=== PATIENT | female | born 1985 | race Caucasian/White ===

== ENCOUNTER 2016-09-19 12:12 | Emergency (ER) | payer MEDICAID ==
[~2016-09-19] VITALS: Ht 165.1 cm; Wt 83.0 kg
[~2016-09-19 12:12] MED LIST: ALBU8.5H5 HOMEINH; ASPI-621 PO; ATOR20TA PO; BENZTROPINE; CLON-364 PO; CLON2TAB2 PO; ESTR1TAB15 PO; GEMF600T PO; INDO75CA3 PO; LEVO175T2 PO; LEVO200T PO; LUTE20TA PO; MAGN100T6 PO; MAGNESIUM PO; MULT-204 PO; MYCO500T PO; MYCO500V PO; OMEG-14 PO; OMEP-110 PO; ONDA8TAB9 PO; OXCA300T3 PO; OXCA600T3 PO; OXYC-302 PO; PANT20TA2 PO; PRED5TAB; PROP60TA PO; QUET300T PO; RISP2TAB35 PO; SERT50TA PO; SUCR1TAB26; TOPI200T25 PO; ZIPR80CA2 PO; [UNRECOGNIZED DRUG - OTHER] PO; cogentin PO; estrogen patch SQ; omeprazole PO; seroquel PO
[2016-09-19] MEDS ORDERED: DIAZEPAM 5 MG TABLET PO ONE (13:30)
[2016-09-19] MEDS ORDERED: KETOROLAC 30 MG/1 ML IM ONE (13:30)
[2016-09-19] MEDS ORDERED: KETOROLAC 30 MG/1 ML ONE (13:39)
[2016-09-19] MEDS ORDERED: DIAZEPAM 5 MG TABLET ONE (13:39)
[2016-09-19 14:29] VITALS: BP_DIAS 71
[2016-09-19 15:06] VITALS: BP_SYST 129
== END 2016-09-19 15:08 | disposition home or self-care (01) ==
LOC: ED 12:42
DX: S39.012A Strain of muscle, fascia and tendon of lower back, initial encounter (principal); R07.89 Other chest pain; I10 Essential (primary) hypertension; K21.9 Gastro-esophageal reflux disease without esophagitis; E07.9 Disorder of thyroid, unspecified; Z90.49 Acquired absence of other specified parts of digestive tract; X50.0XXA Overexertion from strenuous movement or load, initial encounter; X50.9XXA Other and unspecified overexertion or strenuous movements or postures, initial encounter; Y93.89 Activity, other specified; Y92.69 Other specified industrial and construction area as the place of occurrence of the external cause; Y99.8 Other external cause status
CPT/HCPCS: 81003; 93005; 96372; 99285; J1885

== ENCOUNTER 2016-10-04 16:05 | Emergency (ER) | payer MEDICAID ==
[~2016-10-04] VITALS: Ht 165.1 cm; Wt 82.1 kg
[2016-10-04] MEDS ORDERED: KETOROLAC 30 MG/1 ML IVPush ONE (17:00)
[2016-10-04] MEDS ORDERED: SODIUM CHLORIDE FLUSH 10ML SYR IVF ONE (17:00)
[2016-10-04 17:16] LABS: BLOOD UREA NITROGEN 20 mg/dL (7-18)
[2016-10-04] MEDS ORDERED: OMNIPAQUE 350 MG/ML, 100ML BOTTLE ONE (18:20)
[2016-10-04 18:31] VITALS: BP 112/78
== END 2016-10-04 18:41 | disposition home or self-care (01) ==
LOC: ED 17:02
DX: M79.662 Pain in left lower leg (principal); R07.89 Other chest pain; I10 Essential (primary) hypertension; G43.909 Migraine, unspecified, not intractable, without status migrainosus; K21.9 Gastro-esophageal reflux disease without esophagitis; Z90.710 Acquired absence of both cervix and uterus
CPT/HCPCS: 36415; 71275; 80048; 82040; 85025; 93005; 93971; 99285; Q9967

== ENCOUNTER 2016-10-31 22:34 | Emergency (ER) | payer MEDICAID ==
[~2016-10-31] VITALS: Ht 165.1 cm; Wt 85.0 kg
[2016-10-31] MEDS ORDERED: SODIUM CHLORIDE 0.9% 1,000 ML IV ONE (22:39)
[2016-10-31] MEDS ORDERED: MAALOX/HYOSCYAMINE/LIDOCAINE 45 ML BTL PO ONE (23:00)
[2016-10-31] MEDS ORDERED: FAMOTIDINE 20 MG/2 ML IVP ONE (23:00)
[2016-10-31] MEDS ORDERED: SODIUM CHLORIDE FLUSH 10ML SYR IVF ONE (23:00)
[2016-10-31] MEDS ORDERED: MAALOX/HYOSCYAMINE/LIDOCAINE 45 ML BTL ONE (23:05)
[2016-10-31] MEDS ORDERED: FAMOTIDINE 20 MG/2 ML ONE (23:06)
[2016-10-31 23:19] LABS: HEMATOCRIT 41.3 % (34.6-47.8); HEMOGLOBIN 13.9 g/dL (11.7-16.4); WHITE BLOOD COUNT 9.2 x10^3/uL (3.4-10)
[2016-10-31 23:30] LABS: ASPARTATE AMINO TRANSFERASE 24 U/L (15-37); BLOOD UREA NITROGEN 20 mg/dL (7-18)
[2016-11-01 00:30] VITALS: BP 110/60
== END 2016-11-01 00:46 | disposition home or self-care (01) ==
LOC: ED 23:44
DX: K59.00 Constipation, unspecified (principal); I10 Essential (primary) hypertension; K21.9 Gastro-esophageal reflux disease without esophagitis; Z90.49 Acquired absence of other specified parts of digestive tract; Z90.710 Acquired absence of both cervix and uterus
CPT/HCPCS: 36415; 74020; 80053; 83690; 85025; 93005; 96361; 96374; 99285; J7030; S0028

== ENCOUNTER 2017-05-29 12:20 | Emergency (ER) | payer MEDICAID ==
[~2017-05-29] VITALS: Ht 165.1 cm; Wt 88.7 kg
[~2017-05-29 12:20] MED LIST changes: -SUCR1TAB26; +SUCR1TAB33
[2017-05-29] MEDS ORDERED: SODIUM CHLORIDE 0.9% 1,000 ML IV ONE (12:49)
[2017-05-29] MEDS ORDERED: ONDANSETRON 2MG/ML, 2ML IVPush ONE (13:00)
[2017-05-29] MEDS ORDERED: SODIUM CHLORIDE FLUSH 10ML SYR IVF ONE (13:00)
[2017-05-29] MEDS ORDERED: HYDROmorphone 2 MG/ML, 1ML ONE (13:04)
[2017-05-29] MEDS ORDERED: ONDANSETRON 2MG/ML, 2ML ONE ×2 (13:04)
[2017-05-29 13:05] LABS: BASOPHILS # (AUTO) 0.02 x10^3/uL (0-0.1); BASOPHILS % (AUTO) 0 % (0-1); EOSINOPHILS # (AUTO) 0.15 x10^3/uL (0-0.4); EOSINOPHILS % (AUTO) 2 % (1-7); LYMPHOCYTES % (AUTO) 34 % (22-44); MD NO; MEAN CORPUSCULAR HEMOGLOBIN 32.6 pg (27.0-34.8); MEAN CORPUSCULAR HGB CONC 34.5 g/dL (32.4-35.8); MEAN CORPUSCULAR VOLUME 94.4 fL (80-100); MEAN PLATELET VOLUME 8.2 fL (7.4-10.4); MONOCYTES # (AUTO) 0.36 x10^3/uL (0.2-0.8); MONOCYTES % (AUTO) 5 % (2-9); NEUTROPHILS # (AUTO) 4.52 x10^3/uL (1.8-6.8); NEUTROPHILS % (AUTO) 59 % (42-75); PLATELET COUNT 263 x10^3/uL (130-400); RED BLOOD COUNT 4.44 x10^6/uL (3.82-5.3); RED CELL DISTRIBUTION WIDTH 14.1 % (9.6-15.2)
[2017-05-29] MEDS: HYDROmorphone 1 MG/ML, 1ML IVPush PRN ×2 (13:09→13:49)
[2017-05-29 13:17] LABS: ALANINE AMINOTRANSFERASE 22 U/L (12-78); ALBUMIN 3.6 g/dL (3.4-5.0); ANION GAP 6 mmol/L (5-15); CALCIUM 8.8 mg/dL (8.5-10.1); CHLORIDE 113 mmol/L (98-107); CREATININE 0.98 mg/dL (0.55-1.02)
[2017-05-29 13:19] LABS: ALKALINE PHOSPHATASE 58 U/L (45-117); BILIRUBIN,TOTAL 0.2 mg/dL (0.2-1.0)
[2017-05-29 13:34] LABS: MICROSCOPIC NOT IND
[2017-05-29 13:40] VITALS: BP 131/86
[2017-05-29 13:46] LABS: CULTURE INDICATED? NO
== END 2017-05-29 15:37 | disposition home or self-care (01) ==
LOC: ED 13:00
DX: R10.84 Generalized abdominal pain (principal); E11.9 Type 2 diabetes mellitus without complications; I10 Essential (primary) hypertension; G43.909 Migraine, unspecified, not intractable, without status migrainosus; K21.9 Gastro-esophageal reflux disease without esophagitis
CPT/HCPCS: 36415; 74021; 80053; 81003; 83690; 85025; 96361; 96374; 96375; 99285; J1170; J2405; J7030

== ENCOUNTER 2017-09-16 18:41 | Emergency (ER) | payer MEDICAID ==
[~2017-09-16] VITALS: Ht 165.1 cm; Wt 83.9 kg
[2017-09-16 19:16] LABS: BASOPHILS # (AUTO) 0.03 x10^3/uL (0-0.1); BASOPHILS % (AUTO) 0 % (0-1); EOSINOPHILS # (AUTO) 0.11 x10^3/uL (0-0.4); EOSINOPHILS % (AUTO) 2 % (1-7); LYMPHOCYTES # (AUTO) 2.18 x10^3/uL (1-3.4); LYMPHOCYTES % (AUTO) 32 % (22-44); MD NO; MEAN CORPUSCULAR HGB CONC 34.3 g/dL (32.4-35.8); MEAN CORPUSCULAR VOLUME 96.4 fL (80-100); MEAN PLATELET VOLUME 8.2 fL (7.4-10.4); MONOCYTES # (AUTO) 0.48 x10^3/uL (0.2-0.8); MONOCYTES % (AUTO) 7 % (2-9); NEUTROPHILS # (AUTO) 4.13 x10^3/uL (1.8-6.8); NEUTROPHILS % (AUTO) 60 % (42-75); PLATELET COUNT 301 x10^3/uL (130-400); RED BLOOD COUNT 4.36 x10^6/uL (3.82-5.3)
[2017-09-16 19:26] LABS: ALBUMIN 3.6 g/dL (3.4-5.0); ANION GAP 6 mmol/L (5-15); CALCIUM 8.5 mg/dL (8.5-10.1); CHLORIDE 112 mmol/L (98-107); CREATININE 1.25 mg/dL (0.55-1.02)
[2017-09-16] MEDS ORDERED: DEXAMETHASONE 4 MG/ML, 1ML ONE (19:28)
[2017-09-16] MEDS ORDERED: PROCHLORPERAZINE 5 MG/ML, 2ML ONE (19:28)
[2017-09-16] MEDS ORDERED: KETOROLAC 30 MG/1 ML ONE (19:28)
[2017-09-16] MEDS ORDERED: DIPHENHYDRAMINE 50 MG/ML, 1ML ONE (19:28)
[2017-09-16] MEDS ORDERED: KETOROLAC 30 MG/1 ML IVPush ONE (19:30)
[2017-09-16] MEDS ORDERED: SODIUM CHLORIDE 0.9% 1,000ML IVBOLUS ONE ×2 (19:30→21:30)
[2017-09-16] MEDS ORDERED: DEXAMETHASONE 4 MG/ML, 1ML IVPush ONE (19:30)
[2017-09-16] MEDS ORDERED: DIPHENHYDRAMINE 50 MG/ML, 1ML IVPush ONE (19:30)
[2017-09-16] MEDS ORDERED: PROCHLORPERAZINE 5 MG/ML, 2ML IVPush ONE (19:30)
[2017-09-16] MEDS ORDERED: PROMETHAZINE 25 MG/ML, 1ML ONE (21:29)
[2017-09-16] MEDS ORDERED: PROMETHAZINE 25 MG/ML, 1ML IM ONE (21:30)
[2017-09-16 22:41] VITALS: BP 123/72
== END 2017-09-16 22:45 | disposition home or self-care (01) ==
LOC: ED 21:22
DX: G43.009 Migraine without aura, not intractable, without status migrainosus (principal); E86.0 Dehydration; E11.9 Type 2 diabetes mellitus without complications; K21.9 Gastro-esophageal reflux disease without esophagitis; Z90.710 Acquired absence of both cervix and uterus; Z87.891 Personal history of nicotine dependence
CPT/HCPCS: 36415; 70450; 80048; 82040; 85025; 93005; 96361; 96372; 96374; 96375; 99285; J0780; J1100; J1200; J1885; J2550; J7030

== ENCOUNTER 2017-09-29 22:21 | Emergency (ER) | payer MEDICAID ==
[~2017-09-29] VITALS: Ht 165.1 cm; Wt 81.7 kg
[2017-09-29] MEDS ORDERED: KETOROLAC 30 MG/1 ML ONE (23:38)
[2017-09-29] MEDS ORDERED: DIPHENHYDRAMINE 50 MG/ML, 1ML ONE (23:38)
[2017-09-29] MEDS ORDERED: PROCHLORPERAZINE 5 MG/ML, 2ML ONE (23:38)
[2017-09-30] MEDS ORDERED: KETOROLAC 30 MG/1 ML IVPush ONE
[2017-09-30] MEDS ORDERED: PROCHLORPERAZINE 5 MG/ML, 2ML IVPush ONE
[2017-09-30] MEDS ORDERED: DIPHENHYDRAMINE 50 MG/ML, 1ML IVPush ONE
[2017-09-30 00:18] LABS: BASOPHILS # (AUTO) 0.02 x10^3/uL (0-0.1); BASOPHILS % (AUTO) 0 % (0-1); EOSINOPHILS # (AUTO) 0.09 x10^3/uL (0-0.4); EOSINOPHILS % (AUTO) 1 % (1-7); LYMPHOCYTES # (AUTO) 2.67 x10^3/uL (1-3.4); LYMPHOCYTES % (AUTO) 28 % (22-44); MD NO; MEAN CORPUSCULAR HGB CONC 34.1 g/dL (32.4-35.8); MEAN CORPUSCULAR VOLUME 96.7 fL (80-100); MONOCYTES # (AUTO) 0.52 x10^3/uL (0.2-0.8); MONOCYTES % (AUTO) 6 % (2-9); NEUTROPHILS # (AUTO) 6.19 x10^3/uL (1.8-6.8); NEUTROPHILS % (AUTO) 65 % (42-75); PLATELET COUNT 309 x10^3/uL (130-400)
[2017-09-30 00:28] LABS: ALBUMIN 3.9 g/dL (3.4-5.0); ANION GAP 7 mmol/L (5-15); CHLORIDE 109 mmol/L (98-107); CREATININE 1.01 mg/dL (0.55-1.02)
[2017-09-30] MEDS ORDERED: ZIPRASIDONE 20 MG INJ IM ONE ×2 (00:58→01:00)
[2017-09-30 01:09] VITALS: BP 149/99
[2017-09-30] MEDS ORDERED: BENZ1TAB61 PO (14:24)
[2017-10-01] MEDS ORDERED: QUET300T5 PO (02:04)
== END 2017-09-30 01:11 | disposition home or self-care (01) ==
LOC: ED 23:16
DX: G43.009 Migraine without aura, not intractable, without status migrainosus (principal); R55 Syncope and collapse; E11.9 Type 2 diabetes mellitus without complications; I10 Essential (primary) hypertension; E07.9 Disorder of thyroid, unspecified; K21.9 Gastro-esophageal reflux disease without esophagitis; F31.9 Bipolar disorder, unspecified; Z87.891 Personal history of nicotine dependence
CPT/HCPCS: 36415; 80048; 82040; 84703; 85025; 93005; 96372; 96374; 96375; 99285; J0780; J1200; J1885; J3486

== ENCOUNTER 2017-09-30 13:45 | Inpatient (IN) | payer MEDICAID ==
[~2017-09-30] VITALS: Ht 165.1 cm; Wt 84.4 kg
[2017-09-30] MEDS ORDERED: BENZ1TAB61 PO (14:24)
[2017-09-30] MEDS ORDERED: PROCHLORPERAZINE 5 MG/ML, 2ML IVPush ONE (14:30)
[2017-09-30] MEDS ORDERED: SODIUM CHLORIDE 0.9% 1,000ML IVBOLUS ONE (14:30)
[2017-09-30] MEDS ORDERED: DIPHENHYDRAMINE 50 MG/ML, 1ML IVPush ONE ×2 (14:30→22:00)
[2017-09-30] MEDS ORDERED: SODIUM CHLORIDE FLUSH 10ML SYR IVF ONE (14:30)
[2017-09-30] MEDS ORDERED: KETOROLAC 30 MG/1 ML IVPush ONE (14:30)
[2017-09-30 14:50] LABS: BASOPHILS # (AUTO) 0.01 x10^3/uL (0-0.1); BASOPHILS % (AUTO) 0 % (0-1); EOSINOPHILS # (AUTO) 0.08 x10^3/uL (0-0.4); EOSINOPHILS % (AUTO) 1 % (1-7); LYMPHOCYTES # (AUTO) 1.72 x10^3/uL (1-3.4); LYMPHOCYTES % (AUTO) 28 % (22-44); MD NO; MEAN CORPUSCULAR HEMOGLOBIN 32.8 pg (27.0-34.8); MEAN CORPUSCULAR HGB CONC 34.1 g/dL (32.4-35.8); MEAN CORPUSCULAR VOLUME 96.1 fL (80-100); MEAN PLATELET VOLUME 8.5 fL (7.4-10.4); MONOCYTES # (AUTO) 0.36 x10^3/uL (0.2-0.8); MONOCYTES % (AUTO) 6 % (2-9); NEUTROPHILS # (AUTO) 4.08 x10^3/uL (1.8-6.8); NEUTROPHILS % (AUTO) 65 % (42-75); PLATELET COUNT 297 x10^3/uL (130-400); RED BLOOD COUNT 4.45 x10^6/uL (3.82-5.3); RED CELL DISTRIBUTION WIDTH 13.9 % (9.6-15.2)
[2017-09-30 14:52] LABS: INTERNATIONAL NORMALIZED RATIO 1.03 (0.93-1.1); PROTHROMBIN TIME 10.6 Seconds (9.6-11.5)
[2017-09-30] MEDS ORDERED: KETOROLAC 30 MG/1 ML ONE (14:55)
[2017-09-30] MEDS ORDERED: DIPHENHYDRAMINE 50 MG/ML, 1ML ONE (14:55)
[2017-09-30] MEDS ORDERED: PROCHLORPERAZINE 5 MG/ML, 2ML ONE (14:55)
[2017-09-30 14:57] LABS: ALANINE AMINOTRANSFERASE 25 U/L (12-78); ALBUMIN 3.6 g/dL (3.4-5.0); ANION GAP 4 mmol/L (5-15); CHLORIDE 112 mmol/L (98-107)
[2017-09-30 15:03] LABS: ALKALINE PHOSPHATASE 65 U/L (45-117); BILIRUBIN,TOTAL 0.4 mg/dL (0.2-1.0); TOTAL PROTEIN 7.3 g/dL (6.4-8.2)
[2017-09-30 15:13] LABS: MICROSCOPIC NOT IND
[2017-09-30 15:20] LABS: CULTURE INDICATED? NO
[2017-09-30] MEDS ORDERED: hydrALAzine 20 MG/ML, 1ML IVPush PRN (19:00)
[2017-09-30] MEDS ORDERED: DIPHENHYDRAMINE 50 MG/ML, 1ML IM PRN (19:00)
[2017-09-30] MEDS ORDERED: ENALAPRILAT 1.25 MG/ML, 2ML IVPush PRN (19:00)
[2017-09-30] MEDS ORDERED: DEXAMETHASONE 4 MG TABLET PO ONE (19:00)
[2017-09-30] MEDS ORDERED: BISACODYL 10 MG SUPP PR PRN (19:00)
[2017-09-30] MEDS ORDERED: KETOROLAC 30 MG/1 ML IM PRN (19:00)
[2017-09-30] MEDS ORDERED: DOCUSATE 100 MG CAPSULE PO PRN (19:00)
[2017-09-30] MEDS ORDERED: ONDANSETRON 2MG/ML, 2ML IVPush PRN (19:00)
[2017-09-30] MEDS ORDERED: PROMETHAZINE 25 MG/ML, 1ML IM PRN (19:00)
[2017-09-30 19:03] LABS: FREE T4 (FREE THYROXINE) 0.94 ng/dL (0.76-1.46); THYROID STIMULATING HORMONE 2.42 mIU/L (0.358-3.740)
[2017-09-30 19:47] VITALS: BP 144/88
[2017-09-30 20:06] VITALS: BP 149/93
[2017-09-30 20:07] VITALS: BP 151/98
[2017-09-30 20:08] VITALS: BP 150/101
[2017-09-30] MEDS ORDERED: METOCLOPRAMIDE 5 MG/ML, 2ML IVPush ONE (22:00)
[2017-09-30] MEDS: ATORVASTATIN 20 MG TABLET PO SCH (22:41)
[2017-09-30] MEDS: ENOXAPARIN 40 MG/0.4 ML SQ SCH (23:32)
[2017-10-01] VITALS (9 sets, daily range): BP systolic 105–156; BP diastolic 65–99
[2017-10-01] MEDS ORDERED: DEXAMETHASONE 4 MG TABLET PO ONE (00:30)
[2017-10-01] MEDS ORDERED: ZIPRASIDONE 20MG CAPSULE ONE (00:41)
[2017-10-01] MEDS: ZIPRASIDONE 40MG CAPSULE PO SCH ×2 (01:21→21:30)
[2017-10-01] MEDS ORDERED: QUET300T5 PO (02:04)
[2017-10-01] MEDS: KETOROLAC 30 MG/1 ML IVPush PRN ×3 (02:31→21:49)
[2017-10-01] MEDS: LEVOTHYROXINE 200 MCG TABLET PO SCH (06:19)
[2017-10-01 07:23] LABS: AMPHETAMINE SCREEN, URINE Negative (Negative); BARBITURATE SCREEN, URINE Positive (Negative); BENZODIAZEPINE SCREEN, URINE Negative (Negative); CANNABINOID SCREEN, URINE Negative (Negative); COCAINE SCREEN, URINE Negative (Negative); METHADONE SCREEN, URINE Negative (Negative); OPIATE SCREEN, URINE Negative (Negative)
[2017-10-01] MEDS: OMEPRAZOLE 20 MG CAPSULE.DR PO SCH (07:30)
[2017-10-01] MEDS: ASPIRIN 81 MG TABLET EC PO SCH (09:00)
[2017-10-01] MEDS ORDERED: TEMPLATE NON-FORMULARY MED. (Lutein** 20 MG) PO SCH (09:00)
[2017-10-01] MEDS: ESTRADIOL 1 MG TABLET PO SCH (09:00)
[2017-10-01] MEDS: OXCARBAZEPINE 300MG TABLET PO SCH (09:00)
[2017-10-01] MEDS: TOPIRAMATE 100 MG TABLET PO SCH (09:00)
[2017-10-01] MEDS: SODIUM CHLORIDE 0.45% 1,000 ML IV SCH ×2 (09:42→22:56)
[2017-10-01] MEDS: DIPHENHYDRAMINE 50 MG/ML, 1ML IVPush PRN ×2 (12:49→21:49)
[2017-10-01] MEDS ORDERED: LORazepam 2 MG/ML, 1ML ONE (13:29)
[2017-10-01] MEDS ORDERED: LORazepam 2 MG/ML, 1ML IVPush ONE (13:30)
[2017-10-01] MEDS: ONDANSETRON ODT 4 MG PO PRN ×2 (16:12→21:30)
[2017-10-01] MEDS ORDERED: QUETIAPINE 100MG TABLET PO SCH (21:00)
[2017-10-01] MEDS: ATORVASTATIN 20 MG TABLET PO SCH (21:30)
[2017-10-01] MEDS: ENOXAPARIN 40 MG/0.4 ML SQ SCH (22:56)
[2017-10-02 04:00] VITALS: BP_SYST 117; BP_SYST 120; BP_SYST 98; BP_DIAS 61; BP_DIAS 78; BP_DIAS 79
[2017-10-02] MEDS: LEVOTHYROXINE 200 MCG TABLET PO SCH (05:28)
[2017-10-02] MEDS: SODIUM CHLORIDE 0.45% 1,000 ML IV SCH (08:00)
[2017-10-02 08:04] VITALS: BP 103/59
[2017-10-02] MEDS: ESTRADIOL 1 MG TABLET PO SCH (08:20)
[2017-10-02] MEDS: TOPIRAMATE 100 MG TABLET PO SCH (08:21)
[2017-10-02] MEDS: ASPIRIN 81 MG TABLET EC PO SCH (08:21)
[2017-10-02] MEDS: OXCARBAZEPINE 300MG TABLET PO SCH (08:21)
[2017-10-02] MEDS: OMEPRAZOLE 20 MG CAPSULE.DR PO SCH (08:21)
[2017-10-02] MEDS: KETOROLAC 30 MG/1 ML IVPush PRN (08:28)
[2017-10-02] MEDS: DIPHENHYDRAMINE 50 MG/ML, 1ML IVPush PRN (08:28)
== END 2017-10-02 11:54 | disposition home or self-care (01) | DRG 312 ==
LOC: ED 17:30 → EDIP 17:31 → ED 17:46 → 4EST 18:44
PROVIDERS: ADMIT Family Medicine; ATTEND Family Medicine
DX: R55 Syncope and collapse (principal); F15.20 Other stimulant dependence, uncomplicated; F31.9 Bipolar disorder, unspecified; E11.319 Type 2 diabetes mellitus with unspecified diabetic retinopathy without macular edema; R00.1 Bradycardia, unspecified; E03.9 Hypothyroidism, unspecified; G40.909 Epilepsy, unspecified, not intractable, without status epilepticus; G43.909 Migraine, unspecified, not intractable, without status migrainosus; I10 Essential (primary) hypertension; K21.9 Gastro-esophageal reflux disease without esophagitis; Z86.711 Personal history of pulmonary embolism; Z82.49 Family history of ischemic heart disease and other diseases of the circulatory system; Z87.891 Personal history of nicotine dependence; Z88.8 Allergy status to other drugs, medicaments and biological substances; Z90.710 Acquired absence of both cervix and uterus; Z90.49 Acquired absence of other specified parts of digestive tract; Z88.5 Allergy status to narcotic agent; Z91.040 Latex allergy status; Z91.018 Allergy to other foods
CPT/HCPCS: 36415; 70450; 70544; 70551; 71045; 80053; 80307; 81003; 84439; 84443; 85025; 85610; 85730; 93005; 95819; 96361; 96374; 96375; J1650; J1885; Q0162; J0780; J1200; J2060; J2765; J7030

== ENCOUNTER 2017-10-04 13:43 | Emergency (ER) | payer MEDICAID ==
[~2017-10-04] VITALS: Ht 165.1 cm; Wt 80.0 kg
[~2017-10-04 13:43] MED LIST changes: +BENZ1TAB61 PO; +QUET300T5 PO
[2017-10-04] MEDS ORDERED: DIPHENHYDRAMINE 50 MG/ML, 1ML IVPush ONE (14:30)
[2017-10-04] MEDS ORDERED: SODIUM CHLORIDE FLUSH 10ML SYR IVF ONE (14:30)
[2017-10-04] MEDS ORDERED: KETOROLAC 30 MG/1 ML IVPush ONE (14:30)
[2017-10-04] MEDS ORDERED: PROCHLORPERAZINE 5 MG/ML, 2ML IVPush ONE (14:30)
[2017-10-04] MEDS ORDERED: DIPHENHYDRAMINE 50 MG/ML, 1ML ONE (14:37)
[2017-10-04] MEDS ORDERED: KETOROLAC 30 MG/1 ML ONE (14:37)
[2017-10-04] MEDS ORDERED: PROCHLORPERAZINE 5 MG/ML, 2ML ONE (14:38)
[2017-10-04 14:53] VITALS: BP 112/73
== END 2017-10-04 16:05 | disposition home or self-care (01) ==
LOC: ED 15:40
DX: R51 Headache (principal); R11.2 Nausea with vomiting, unspecified; E11.9 Type 2 diabetes mellitus without complications; I10 Essential (primary) hypertension; F31.9 Bipolar disorder, unspecified; K21.9 Gastro-esophageal reflux disease without esophagitis; E07.9 Disorder of thyroid, unspecified; W18.30XA Fall on same level, unspecified, initial encounter; Y93.89 Activity, other specified; Y92.89 Other specified places as the place of occurrence of the external cause; Y99.8 Other external cause status
CPT/HCPCS: 96374; 96375; 99284; J0780; J1200; J1885

== ENCOUNTER 2017-11-18 19:59 | Emergency (ER) | payer MEDICAID ==
[~2017-11-18] VITALS: Ht 165.1 cm; Wt 86.0 kg
[~2017-11-18 19:59] MED LIST changes: -CLON-364 PO; +CLON0.5T11 PO; -CLON2TAB2 PO; +CLON2TAB9 PO
[2017-11-18 20:14] VITALS: BP 150/88
[2017-11-18] MEDS ORDERED: OXYcodone/APAP 5/325MG TABLET ONE (20:43)
[2017-11-18] MEDS ORDERED: KETOROLAC 30 MG/1 ML ONE (20:43)
[2017-11-18] MEDS ORDERED: DIAZEPAM 5 MG TABLET ONE (20:44)
[2017-11-18] MEDS ORDERED: KETOROLAC 30 MG/1 ML IM ONE (21:00)
[2017-11-18] MEDS ORDERED: DIAZEPAM 5 MG TABLET PO ONE (21:00)
[2017-11-18] MEDS ORDERED: OXYcodone/APAP 5/325MG TABLET PO ONE (21:00)
== END 2017-11-18 21:41 | disposition home or self-care (01) ==
LOC: ED 21:38
DX: S39.012A Strain of muscle, fascia and tendon of lower back, initial encounter (principal); S29.012A Strain of muscle and tendon of back wall of thorax, initial encounter; E11.319 Type 2 diabetes mellitus with unspecified diabetic retinopathy without macular edema; I10 Essential (primary) hypertension; K21.9 Gastro-esophageal reflux disease without esophagitis; F31.9 Bipolar disorder, unspecified; G43.909 Migraine, unspecified, not intractable, without status migrainosus; X58.XXXA Exposure to other specified factors, initial encounter; Y93.89 Activity, other specified; Y92.89 Other specified places as the place of occurrence of the external cause; Y99.8 Other external cause status
CPT/HCPCS: 82962; 96372; 99283; J1885

== ENCOUNTER 2018-02-11 09:54 | Emergency (ER) | payer MEDICAID ==
[~2018-02-11] VITALS: Ht 162.6 cm; Wt 92.4 kg
[~2018-02-11 09:54] MED LIST changes: -MYCO500V PO; +MYCO500V5 PO
[2018-02-11] MEDS ORDERED: KETOROLAC 30 MG/1 ML IM ONE (10:30)
[2018-02-11] MEDS ORDERED: METHOCARBAMOL 750 MG TABLET PO ONE (10:30)
[2018-02-11] MEDS ORDERED: METHOCARBAMOL 750 MG TABLET ONE (10:31)
[2018-02-11] MEDS ORDERED: KETOROLAC 30 MG/1 ML ONE (10:31)
[2018-02-11 10:50] LABS: HCG UR SG 1.014 (1.003-1.030); MICROSCOPIC NOT IND
[2018-02-11 10:51] LABS: CULTURE INDICATED? NO
[2018-02-11 10:54] LABS: BASOPHILS # (AUTO) 0.04 x10^3/uL (0-0.1); BASOPHILS % (AUTO) 1 % (0-1); EOSINOPHILS # (AUTO) 0.13 x10^3/uL (0-0.4); EOSINOPHILS % (AUTO) 2 % (1-7); LYMPHOCYTES # (AUTO) 2.42 x10^3/uL (1-3.4); LYMPHOCYTES % (AUTO) 31 % (22-44); MD NO; MEAN CORPUSCULAR HEMOGLOBIN 31.9 pg (27.0-34.8); MEAN CORPUSCULAR HGB CONC 33.9 g/dL (32.4-35.8); MEAN CORPUSCULAR VOLUME 93.9 fL (80-100); MEAN PLATELET VOLUME 8.3 fL (7.4-10.4); MONOCYTES # (AUTO) 0.49 x10^3/uL (0.2-0.8); MONOCYTES % (AUTO) 6 % (2-9); NEUTROPHILS # (AUTO) 4.63 x10^3/uL (1.8-6.8); NEUTROPHILS % (AUTO) 60 % (42-75); PLATELET COUNT 295 x10^3/uL (130-400); RED BLOOD COUNT 4.66 x10^6/uL (3.82-5.3); RED CELL DISTRIBUTION WIDTH 13.1 % (9.6-15.2)
[2018-02-11 11:04] LABS: ALANINE AMINOTRANSFERASE 37 U/L (12-78); ALBUMIN 3.4 g/dL (3.4-5.0); ANION GAP 7 mmol/L (5-15); CHLORIDE 109 mmol/L (98-107); CREATININE 0.75 mg/dL (0.55-1.02)
[2018-02-11 11:06] LABS: ALKALINE PHOSPHATASE 79 U/L (45-117); BILIRUBIN,TOTAL 0.2 mg/dL (0.2-1.0)
[2018-02-11] MEDS ORDERED: PROMETHAZINE 25 MG/ML, 1ML ONE (11:49)
[2018-02-11] MEDS ORDERED: PROMETHAZINE 25 MG/ML, 1ML IM ONE (12:00)
[2018-02-11] MEDS ORDERED: DIPHENHYDRAMINE 50 MG/ML, 1ML IVPush ONE (13:00)
[2018-02-11] MEDS ORDERED: PROCHLORPERAZINE 5 MG/ML, 2ML IVPush ONE (13:00)
[2018-02-11] MEDS ORDERED: METOCLOPRAMIDE 5 MG/ML, 2ML ONE (13:04)
[2018-02-11] MEDS ORDERED: DIPHENHYDRAMINE 50 MG/ML, 1ML ONE (13:04)
[2018-02-11] MEDS ORDERED: PROCHLORPERAZINE 5 MG/ML, 2ML ONE (13:27)
[2018-02-11 13:29] VITALS: BP 109/54
== END 2018-02-11 14:11 | disposition home or self-care (01) ==
LOC: ED 11:21
DX: R11.2 Nausea with vomiting, unspecified (principal); G43.909 Migraine, unspecified, not intractable, without status migrainosus; I10 Essential (primary) hypertension; E11.9 Type 2 diabetes mellitus without complications; F31.9 Bipolar disorder, unspecified; K21.9 Gastro-esophageal reflux disease without esophagitis; Z86.39 Personal history of other endocrine, nutritional and metabolic disease; Z90.89 Acquired absence of other organs; Z90.710 Acquired absence of both cervix and uterus; Z90.49 Acquired absence of other specified parts of digestive tract; Z88.9 Allergy status to unspecified drugs, medicaments and biological substances; Z88.6 Allergy status to analgesic agent; Z88.8 Allergy status to other drugs, medicaments and biological substances
CPT/HCPCS: 36415; 71045; 80053; 81003; 81025; 85025; 93005; 96372; 96374; 96375; 99285; J0780; J1200; J1885; J2550

== ENCOUNTER 2018-05-27 21:15 | Emergency (ER) | payer MEDICAID ==
[~2018-05-27] VITALS: Ht 165.1 cm; Wt 94.3 kg
[~2018-05-27 21:15] MED LIST changes: -ASPI-621 PO; +ASPI81TA45 PO
[2018-05-27 21:17] VITALS: BP 141/89
== END 2018-05-27 22:26 | disposition left against medical advice (07) ==
LOC: ED 22:15
DX: R07.9 Chest pain, unspecified (principal); Z53.21 Procedure and treatment not carried out due to patient leaving prior to being seen by health care provider
CPT/HCPCS: 93005

== ENCOUNTER 2018-06-10 16:59 | Emergency (ER) | payer MEDICAID ==
[~2018-06-10] VITALS: Ht 165.1 cm; Wt 94.3 kg
--- NOTE | 2018-06-10 18:14 | NUR ---
TO ROOM FROM LOBBY. NAD.
[2018-06-10 18:27] LABS: BASOPHILS # (AUTO) 0.02 x10^3/uL (0-0.1); BASOPHILS % (AUTO) 0 % (0-1); EOSINOPHILS # (AUTO) 0.12 x10^3/uL (0-0.4); EOSINOPHILS % (AUTO) 1 % (1-7); LYMPHOCYTES # (AUTO) 2.89 x10^3/uL (1-3.4); LYMPHOCYTES % (AUTO) 33 % (22-44); MD NO; MEAN CORPUSCULAR HGB CONC 34.4 g/dL (32.4-35.8); MEAN CORPUSCULAR VOLUME 93.2 fL (80-100); MEAN PLATELET VOLUME 8.6 fL (7.4-10.4); MONOCYTES # (AUTO) 0.66 x10^3/uL (0.2-0.8); MONOCYTES % (AUTO) 8 % (2-9); NEUTROPHILS # (AUTO) 5.12 x10^3/uL (1.8-6.8); NEUTROPHILS % (AUTO) 58 % (42-75); PLATELET COUNT 311 x10^3/uL (130-400); RED BLOOD COUNT 4.87 x10^6/uL (3.82-5.3)
[2018-06-10 18:30] LABS: ALBUMIN 3.7 g/dL (3.4-5.0); ANION GAP 6 mmol/L (5-15); CHLORIDE 112 mmol/L (98-107)
[2018-06-10 18:35] LABS: ALANINE AMINOTRANSFERASE 38 U/L (12-78); ALKALINE PHOSPHATASE 100 U/L (45-117); BILIRUBIN,TOTAL 0.4 mg/dL (0.2-1.0); CREATININE 0.78 mg/dL (0.55-1.02); TOTAL PROTEIN 7.6 g/dL (6.4-8.2); TROPONIN I < 0.015 ng/mL (0.000-0.045)
--- NOTE | 2018-06-10 18:49 | NUR ---
PT PRESENTS TO ED WITH C/O HEADACHE AND DIZZINESS STARTING SEVERAL HOURS AGO, THEN PAIN IN HEAD BEGAN TO RADIATE DOWN TO BILATAL CHEST. EKG TAKEN IN TRIAGE. ALL MONITORS IN PLACE. PT IS A&OX4, RESPS EVEN AND UNLABORED. NEURO INTACT. NO DRIFT, BILATERAL GRASP EQUAL, ALL EXTREMITY STRENGTH 5/5. ALL RESULTS BACK, CHART UP FOR RECHECK. AWAITING MD AND DISPO.
--- NOTE | 2018-06-10 18:59 | NUR ---
EDMD RONIT NOTIFIED PT C/O CHEST PAIN (NOT NOTED IN TRIAGE NOTE) AND HAS HX PE, STATING SHE IS NOT ANTICOAGULATED AT THIS TIME. EDMD AT BEDSIDE TO EVALUATE PT.
[2018-06-10] MEDS ORDERED: LORazepam 1MG TABLET ONE (19:22)
--- NOTE | 2018-06-10 19:22 | NUR ---
report to break TRACEY Steinberg.
[2018-06-10] MEDS ORDERED: LORazepam 1MG TABLET PO ONE (19:30)
--- NOTE | 2018-06-10 20:02 | NUR ---
REPORT TAKEN FROM SHERRELL TALBOT.
--- NOTE | 2018-06-10 20:23 | NUR ---
pt a&o, resps even and unlabored. pt reports she is feeling better. nsr on insurance writer with no ectopy. all results back, chart up for recheck. awaiting MD and dispo.
[2018-06-10] MEDS ORDERED: HYDROmorphone 2 MG/ML, 1ML IVPush PRN (21:00)
[2018-06-10] MEDS ORDERED: PROMETHAZINE 25 MG/ML, 1ML IM ONE (21:00)
--- NOTE | 2018-06-10 21:00 | NUR ---
PT REPORTS "I FEEL MORE RELAXED BUT STILL HAVE PAIN." EDMD INFORMED.
[2018-06-10] MEDS ORDERED: HYDROmorphone 1 MG/ML, 1ML ONE (21:15)
[2018-06-10] MEDS ORDERED: PROMETHAZINE 25 MG/ML, 1ML ONE (21:15)
[2018-06-10] MEDS ORDERED: HYDROmorphone 2 MG/ML, 1ML IM ONE (21:30)
--- NOTE | 2018-06-10 21:30 | NUR ---
PT MEDICATED PER EMAR, BP AND SPO2 MONITORS IN PLACE.
[2018-06-10 22:15] VITALS: BP 141/92
== END 2018-06-10 22:17 | disposition home or self-care (01) ==
LOC: ED 19:50
DX: R51 Headache (principal); E11.9 Type 2 diabetes mellitus without complications; I10 Essential (primary) hypertension; E07.9 Disorder of thyroid, unspecified; Z90.49 Acquired absence of other specified parts of digestive tract
CPT/HCPCS: 36415; 71046; 80053; 84484; 84703; 85025; 85379; 93005; 96372; 99284; J1170; J2550

== ENCOUNTER 2018-06-24 17:03 | Emergency (ER) | payer MEDICAID ==
[~2018-06-24] VITALS: Ht 165.1 cm; Wt 95.5 kg
[2018-06-24 17:53] LABS: BASOPHILS # (AUTO) 0.03 x10^3/uL (0-0.1); BASOPHILS % (AUTO) 0 % (0-1); EOSINOPHILS # (AUTO) 0.13 x10^3/uL (0-0.4); EOSINOPHILS % (AUTO) 2 % (1-7); LYMPHOCYTES # (AUTO) 2.86 x10^3/uL (1-3.4); LYMPHOCYTES % (AUTO) 34 % (22-44); MD NO; MEAN CORPUSCULAR HEMOGLOBIN 31.9 pg (27.0-34.8); MEAN CORPUSCULAR HGB CONC 34.8 g/dL (32.4-35.8); MEAN CORPUSCULAR VOLUME 91.8 fL (80-100); MEAN PLATELET VOLUME 8.7 fL (7.4-10.4); MONOCYTES # (AUTO) 0.49 x10^3/uL (0.2-0.8); MONOCYTES % (AUTO) 6 % (2-9); NEUTROPHILS % (AUTO) 59 % (42-75); PLATELET COUNT 280 x10^3/uL (130-400); RED BLOOD COUNT 4.79 x10^6/uL (3.82-5.3); RED CELL DISTRIBUTION WIDTH 13.8 % (9.6-15.2)
[2018-06-24 18:05] LABS: ALANINE AMINOTRANSFERASE 46 U/L (12-78); ALBUMIN 3.9 g/dL (3.4-5.0); ANION GAP 5 mmol/L (5-15); CALCIUM 8.7 mg/dL (8.5-10.1); CHLORIDE 109 mmol/L (98-107); CREATININE 0.86 mg/dL (0.55-1.02)
[2018-06-24 18:09] LABS: ALKALINE PHOSPHATASE 90 U/L (45-117); BILIRUBIN,TOTAL 0.2 mg/dL (0.2-1.0); TOTAL PROTEIN 7.4 g/dL (6.4-8.2)
[2018-06-24] MEDS ORDERED: KETOROLAC 30 MG/1 ML IVPush ONE (18:30)
[2018-06-24] MEDS ORDERED: KETOROLAC 30 MG/1 ML IM ONE (18:30)
[2018-06-24] MEDS ORDERED: METOCLOPRAMIDE 5 MG/ML, 2ML IVPush ONE (18:30)
[2018-06-24 18:43] LABS: MICROSCOPIC NOT IND
[2018-06-24 18:49] LABS: CULTURE INDICATED? NO
[2018-06-24] MEDS ORDERED: KETOROLAC 30 MG/1 ML ONE (18:52)
[2018-06-24] MEDS ORDERED: METOCLOPRAMIDE 5 MG/ML, 2ML ONE (18:52)
[2018-06-24] MEDS ORDERED: METH2.5T PO (19:08)
[2018-06-24] MEDS ORDERED: LAMO200T3 PO (19:08)
[2018-06-24] MEDS ORDERED: FOLI0.8T2 PO (19:09)
[2018-06-24] MEDS ORDERED: CALC1CAP8 PO (19:09)
--- NOTE | 2018-06-24 19:10 | NUR ---
received report from TRACEY Lomeli
[2018-06-24 19:17] LABS: FREE T4 (FREE THYROXINE) 0.83 ng/dL (0.76-1.46)
--- NOTE | 2018-06-24 19:41 | NUR ---
all labs back. chart up for recheck
--- NOTE | 2018-06-24 20:14 | NUR ---
ERP at bedside for re-evaluation.
[2018-06-24 20:15] VITALS: BP 140/92
--- NOTE | 2018-06-24 20:27 | NUR ---
patient discharged with prescription and instruction. verbalized understanding.
== END 2018-06-24 20:29 | disposition home or self-care (01) ==
LOC: ED 19:37
DX: E05.90 Thyrotoxicosis, unspecified without thyrotoxic crisis or storm (principal); E11.9 Type 2 diabetes mellitus without complications; I10 Essential (primary) hypertension; F31.9 Bipolar disorder, unspecified; K21.9 Gastro-esophageal reflux disease without esophagitis; E07.9 Disorder of thyroid, unspecified; R60.0 Localized edema; R11.2 Nausea with vomiting, unspecified
CPT/HCPCS: 36415; 71046; 80053; 81003; 83880; 84439; 84443; 84703; 85025; 93005; 96374; 96375; 99284; J1885; J2765

== ENCOUNTER 2018-08-07 11:19 | Emergency (ER) | payer MEDICAID ==
[~2018-08-07] VITALS: Ht 165.1 cm; Wt 94.4 kg
[~2018-08-07 11:19] MED LIST changes: +CALC1CAP8 PO; +FOLI0.8T2 PO; +LAMO200T3 PO; +METH2.5T PO
[2018-08-07 11:22] VITALS: BP 145/97
--- NOTE | 2018-08-07 11:40 | NUR ---
Slammed R hand in freezer door. + swelling to hand & fingers. Pt has a ring on R fourth finger that she is unable to remove due to swelling. Pt is aware that ring may need to be cut off. Pain 11/12.
--- NOTE | 2018-08-07 12:24 | NUR ---
Ring removed intact, alumiform splint to 1st & 2nd digit placed by EMT. +[facility] RUE. Patient given discharge instructions and they have confirmed that they understand the instructions. Patient ambulatory with steady gait.
== END 2018-08-07 12:26 | disposition home or self-care (01) ==
LOC: ED 12:00
DX: S60.041A Contusion of right ring finger without damage to nail, initial encounter (principal); E05.90 Thyrotoxicosis, unspecified without thyrotoxic crisis or storm; E11.9 Type 2 diabetes mellitus without complications; K21.9 Gastro-esophageal reflux disease without esophagitis; F31.9 Bipolar disorder, unspecified; I10 Essential (primary) hypertension; Z90.710 Acquired absence of both cervix and uterus; Z90.89 Acquired absence of other organs; Z87.891 Personal history of nicotine dependence; Z79.899 Other long term (current) drug therapy; Z88.5 Allergy status to narcotic agent; X58.XXXA Exposure to other specified factors, initial encounter; Y93.89 Activity, other specified; Y92.89 Other specified places as the place of occurrence of the external cause; Y99.8 Other external cause status
CPT/HCPCS: 29130; 99283

== ENCOUNTER 2018-11-11 13:50 | Emergency (ER) | payer MEDICAID ==
[~2018-11-11] VITALS: Ht 165.1 cm; Wt 102.0 kg
[2018-11-11 14:11] VITALS: BP 136/88
== END 2018-11-11 15:59 | disposition home or self-care (01) ==
LOC: ED 15:53
DX: S93.491A Sprain of other ligament of right ankle, initial encounter (principal); S93.492A Sprain of other ligament of left ankle, initial encounter; S93.621A Sprain of tarsometatarsal ligament of right foot, initial encounter; S93.622A Sprain of tarsometatarsal ligament of left foot, initial encounter; G89.11 Acute pain due to trauma; E11.9 Type 2 diabetes mellitus without complications; I10 Essential (primary) hypertension; F31.9 Bipolar disorder, unspecified; K21.9 Gastro-esophageal reflux disease without esophagitis; E05.90 Thyrotoxicosis, unspecified without thyrotoxic crisis or storm; W01.0XXA Fall on same level from slipping, tripping and stumbling without subsequent striking against object, initial encounter; Y93.89 Activity, other specified; Y92.833 Campsite as the place of occurrence of the external cause; Y99.8 Other external cause status
CPT/HCPCS: 99283

== ENCOUNTER 2019-05-20 14:01 | Emergency (ER) | payer MEDICAID ==
[~2019-05-20] VITALS: Ht 165.1 cm; Wt 115.0 kg
[~2019-05-20 14:01] MED LIST changes: +CLON-364 PO; -CLON0.5T11 PO
--- NOTE | 2019-05-20 14:13 | NUR ---
PT BIB EMS FOR MIGRAINE AND STIFF MUSCLES IN NECK AND ARMS SINCE THIS AM. FEELS DIZZY, NAUSEAS. SENSTIVE TO LIGHT, SOUND.SELF MEDICATED W TYLENOL AND PEROCET. NO RELIEF. MD AT BEDSIDE.PT NOT IN DISTRESS. RESPIRATIONS EVEN AND UNLABORED
[2019-05-20 14:15] VITALS: BP 160/103
[2019-05-20] MEDS ORDERED: DIPHENHYDRAMINE 50 MG/ML, 1ML IVPush ONE (14:30)
[2019-05-20] MEDS ORDERED: KETOROLAC 30 MG/1 ML IVPush ONE (14:30)
[2019-05-20] MEDS ORDERED: PROCHLORPERAZINE 5 MG/ML, 2ML IVPush ONE (14:30)
[2019-05-20] MEDS ORDERED: SODIUM CHLORIDE FLUSH 10ML SYR IVF ONE (14:30)
[2019-05-20] MEDS ORDERED: DIPHENHYDRAMINE 50 MG/ML, 1ML ONE (14:33)
[2019-05-20] MEDS ORDERED: KETOROLAC 30 MG/1 ML ONE (14:33)
[2019-05-20] MEDS ORDERED: PROCHLORPERAZINE 5 MG/ML, 2ML ONE (14:33)
--- NOTE | 2019-05-20 14:42 | NUR ---
MEDICATED PER ORDERS. LIGHTS DIMMED
--- NOTE | 2019-05-20 15:40 | NUR ---
Patient/Caregiver given discharge instructions and they have confirmed that they understand the instructions. Patient ambulatory with steady gait.
== END 2019-05-20 15:42 | disposition home or self-care (01) ==
LOC: ED 15:20
DX: G43.019 Migraine without aura, intractable, without status migrainosus (principal); R11.2 Nausea with vomiting, unspecified; R07.89 Other chest pain; K21.9 Gastro-esophageal reflux disease without esophagitis; I10 Essential (primary) hypertension; E05.90 Thyrotoxicosis, unspecified without thyrotoxic crisis or storm; E11.9 Type 2 diabetes mellitus without complications; Z87.891 Personal history of nicotine dependence; Z90.89 Acquired absence of other organs; Z90.710 Acquired absence of both cervix and uterus
CPT/HCPCS: 96374; 96375; 99284; J0780; J1200; J1885